=== PATIENT | male | born 1955 | race Caucasian/White ===

== ENCOUNTER → 2019-05-20 09:03 | Outpatient (CLI) | payer OTHER, SELFPAY ==
[2019-05-20 08:53] VITALS: BMI 29.5
--- NOTE | 2019-05-20 09:04 | RAD_ITS ---
HISTORY: increasing left hip pain, pre op EXAM: AP pelvis, and views of the left hip COMPARISON: None FINDINGS: # of images incl. paperwork: 6 *Arthritis is severe at the left hip. There is obliteration of the joint space. Subcortical cystic degenerative change, sclerosis, and osteophytes are present about the left hip. Surgical clips are present within the region of the left and right common femoral arteries from previous arteriotomy's. A stent is present within the region of the left common iliac artery. No dislocation. No acute fracture. RAD/HIP, UNI W/ Pelvis 2-3 Views IMPRESSION: Severe left hip osteoarthritis at 0558 Reported and signed by: Pratik Taylor MD Electronically Signed: Pratik Taylor MD at 5:57 EDT Tel , Service support ,
== END ==
PROVIDERS: Referring Provider Physician Assistant; Visit Provider Physician Assistant
DX: M16.12 Unilateral primary osteoarthritis, left hip (principal)
CPT/HCPCS: 73502

== ENCOUNTER 2019-06-04 08:45 | Inpatient (IN) | payer OTHER, SELFPAY ==
[2019-05-20 08:53] VITALS: BMI 29.5
[2019-05-28 10:18] VITALS: BP 149/76; PULSE 89; RESP 16; TEMP 36.9; O2SAT 97; BMI 30.4
[2019-06-04] VITALS (12 sets, daily range): BP systolic 122–149; BP diastolic 6–85; PULSE 60–97; RESP 16–18; TEMP 36.1–37.3; O2SAT 94–100; BMI 30.4
--- NOTE | 2019-06-04 07:16 | HP.PCM_ITS ---
History and Physical Date of Admission: 06/04/19 Intake Vital Signs 05/20/19 Body Mass Index (BMI) 29.5 Intake Visit Reasons: left hip Allergies Penicillins Allergy (Verified 04/17/19 08:35) rash HPI left hip: Details: Parts of this documentation were recorded by a scribe, this documentation accurately reflects the service provided and the decisions made by , RANJEET Lopez 05/20/19 0853. DAMION HIRSCH is a 63 year old M here today for left hip pain and to sign consent for surgery. Patient continues to have left groin pain, diffficulty with sit to stand movement as well as weakness and cramping in the left quad that has been associated with his femoral artery surgery. Patient is on plavix and has an appointment with Dr Langston next week to review his surgery clearance. He does have mild left side low back pain and sciatica, he is in understanding that his LUIS CARLOS will not resolve the back concerns. ROS Const Reports system reviewed and no additional complaints, except as docu, Reports weakness Eyes Reports system reviewed and no additional complaints, except as docu ENT Reports system reviewed and no additional complaints, except as docu Card Reports system reviewed and no additional complaints, except as docu, Denies chest pain, Denies leg pain with activity Resp Reports system reviewed and no additional complaints, except as docu GI Reports system reviewed and no additional complaints, except as docu Reports system reviewed and no additional complaints, except as docu Musc Reports system reviewed and no additional complaints, except as docu, Reports as per HPI, Reports tingling Skin/Breast Reports as per HPI, Denies skin swelling Neuro Yes as per HPI, Yes radiating pain, Yes tingling, Yes weakness Psych Reports system reviewed and no additional complaints, except as docu Endo Reports system reviewed and no additional complaints, except as docu Kelvin/Lymph Reports system reviewed and no additional complaints, except as docu Aller/Immun Reports system reviewed and no additional complaints, except as docu Ortho Exam Left Hip Skin/Wound: No Ecchymosis, No Erythema Hip: Absent eccymosis or erythema Special Tests: Yes C sign; no TTP Greater Troch Homans Sign: No HIP: No acute abnormalities on inspection. He does have healing scars from previous femoral bypass procedure. Patient does have pain with range of motion of the hip most notably internal and external rotation. Assessment & Plan Problems 1. Primary osteoarthritis of left hip M16.12 Plan Patient presents the office for left hip pain which has been occurring for quite a long time now. Patient had original x-rays and was told he needed a new hip. Radiographs were taken today as well along with marker placement. Radiographs show evidence of severe arthritis of the left hip. At this point patient has had continued progressing pain which has led to inability to complete some activities of daily living as well as extracurricular activities. Due to these factors patient would like to proceed with left hip total arthroplasty. Patient does have significant medical history for vascular disease and is meeting with his vascular surgeon on for clearance. Patient does currently take Plavix which we discussed he will need to stop 7 days prior to procedure. Patient had already discussed the procedure with at same time we did discuss this again and answered his questions. We did discuss postop and recovery including hospital stay. Patient does live by himself and has a few steps up to his front door. No steps in the house. Patient was given surgical antibacterial soap to be used the night before and morning of on the left lower extremity. Patient will be notified the day before surgery regarding his time of surgery. Patient will also be contacted by anesthesia for preanesthesia testing. All of patient's questions were answered at this time. He can always notify the office if he has any further questions or concerns. This note was generated with [employer] dictation software. It may contain incorrect words, spelling, and punctuation that were not noted in checking the note before signing. Orders Orders: HIP, UNI W/ Pelvis 2-3 Views Today M16.12 Coding Level of Care Code Off vis,est,level 2 Diagnoses Primary osteoarthritis of left hip M16.12 I have re-examined the patient. There are no clinical changes since date of exam
[2019-06-04 09:26] LABS: Bedside Glucose 84 mg/dL (70-110)
[2019-06-04] MEDS: Scopolamine 1mg/72hr Patch 1 PATCH TRANSDERM. (09:40)
[2019-06-04] MEDS: Gabapentin 600 MG Tablet PO (09:40)
[2019-06-04] MEDS: Acetaminophen 500 MG Tablet 1000 MG PO ×2 (09:41→21:14)
[2019-06-04] MEDS: Celecoxib 200 MG Capsule 400 MG PO (09:41)
[2019-06-04] MEDS: Magnesium Sulfate 4gm/100mL 4 GM/100 ML IV.SOLN. IV (09:45)
[2019-06-04] MEDS: Lactated Ringers 1,000 ML 100 ML IV (09:57)
[2019-06-04] MEDS: Cefazolin 2 GM in 0.9% Normal Saline 100 ML IV (13:07)
[2019-06-04] MEDS: dexAMETHasone 10 MG/ML Vial IV (13:28)
--- NOTE | 2019-06-04 14:59 | RAD_ITS ---
STUDY: X-RAY - PELVIS AND LEFT HIP REASON FOR EXAM: Male, 63 years old. Postop TECHNIQUE: 3 views of the pelvis and hip. COMPARISON: None. FINDINGS: There is mild degenerative change in the right hip joint. There is a new left hip arthroplasty with expected overlying skin gypsy and subcutaneous gas. Appears to be in anatomic position and alignment. RAD/Hip Min 2 Views (Portable) IMPRESSION: Status post new left hip arthroplasty. Postoperative change. Mild degenerative change right hip joint. Electronically Signed: Hanna Cortes MD at 16:50 EDT Tel , Service support ,
--- NOTE | 2019-06-04 15:03 | OP.PCM_ITS ---
Report of Operation Date of Procedure: 06/04/19 Description of Surgical Findings:: Preoperative diagnosis: DJD left hip Postoperative diagnosis: Same Procedure: Left total hip arthroplasty Implants: Catarino Accolade II stem size 4 127 degree neck angle -2.5 neck length 56 mm cup with 30mm cancellous screw 36 mm ceramic head Anesthesia: Spinal EBL: 300 cc Complications: None Condition: Stable to PACU Indication for procedure: This is a 63-year-old male who has had long-standing arthrosis of the hip who has failed conservative treatment and wished to undergo total hip arthroplasty. We did discuss operative versus nonoperative intervention including risks of bleeding, infection , nerve artery tissue damage , need for further surgery, fracture, leg length discrepancy dislocation blood clot and need for postoperative physical therapy and postoperative expectations. An informed consent was signed. Procedure: Patient was met in the preoperative holding area once again the operative extremity was identified by both patient and physician and was marked. Patient was met by anesthesia and a spinal was placed. patient was then positioned in the lateral decubitus position on a well-padded pegboard with an axillary roll. All bony prominences were checked and padded. The patient was prepped and draped in the usual sterile fashion. A timeout was called to ensure the proper patient procedure and extremity were being contemplated. Anatomic landmarks were palpated and marked for a standard posterior lateral approach. A 10 blade scalpel was used to make a posterior incision through the skin and subcutaneous tissue. In retractors were used and electrocautery was used to maintain meticulous hemostasis and dissect full-thickness flaps until the gluteal fascia was reached. The gluteal fascia was incised in line with the gluteal fibers. The bursal tissue was then freed from the underside and a Charnley retractor was placed. The fat pad was elevated off of the external rotators with electrocautery and the external rotators were dissected off of the greater trochanter including the piriformis and were tagged with #1 Ethibond for later repair. The joint capsule opened with posterior trapdoor technique. The hip was surgically dislocated. Hohmann was placed around the lesser trochanter. A neck cutting guide was used to bruno the neck with a Bovie and an oscillating saw was used complete the femoral neck cut. The femoral head was then removed and sized. We then turned our attention to the acetabulum. A Bovie was used to make a perforation in the anterior joint capsule and a pointed Hohmann was placed this was repeated in the 6 o'clock position a wide alla was placed there. With a long handled knife the labral and pulvinar tissue were removed. We then began sequential reaming until the appropriate size was achieved. We then fit the acetabular shell in place with good water reuse program manager to the acetabulum. We then proceeded to place a posterior superior screw by drilling first measuring and inserting the screw. We then inserted a trial liner. And turned our attention back to the femur at this point a femoral elevator was used. As well as a pointed wide Hohmann around the lesser trochanter and a Hohmann to help retract the gluteus medius. A box chisel was used to remove excess lateral neck followed by a canal finder and a lateralizing reamer. This was followed by sequential broaches. Attention was made of the version within the canal. Once the final broach was seated we then trialed reduced the hip it was determined that a 27 degree neck angle with a -2.5 neck length was the appropriate size. We then checked ability with shuck testing as well as flexion and internal rotation. then proceeded with hip extension and checked leg lengths at the knees and heels. At this point trials were removed. A posterior lipped liner was inserted to the cup. The femoral stem was inserted. We re-trialed and then proceeded to impact the femoral head onto the Rock taper. We then surgically reduce the hip check stability again and leg lengths and were satisfied. Betadi ne rinse was allowed to sit for 5 minutes while everyone changed their gloves. Thorough irrigation was performed. Followed by closure of the external rotators with #2 FiberWire followed by closure of gluteal fascia with #1 Ethibond. 0 Vicryl fat stitches and 2-0 Vicryl subcutaneous stitches and gypsy in the skin. Dressing was applied Mepilex Ag and an abduction pillow was placed. Patient tolerated the procedure well there was no intraoperative complications all counts were correct and the patient was brought back to the PACU in stable condition
[2019-06-04] MEDS: Lactated Ringers 1,000 ML 125 ML IV (16:43)
[2019-06-04] MEDS: Cefazolin 1 GM/50 ML BAG IV ×2 (17:25→22:59)
[2019-06-04] MEDS: Atorvastatin Calcium 40 MG Tablet PO (21:14)
[2019-06-04] MEDS: Senna/Docusate Sodium 1 Tablet 2 TABLET PO (21:15)
[2019-06-04] MEDS: oxyCODONE 5 MG Tablet PO (23:03)
[2019-06-05 03:25] VITALS: BP 109/63; PULSE 83; RESP 17; TEMP 36.6; O2SAT 96
[2019-06-05] MEDS: oxyCODONE 5 MG Tablet PO ×2 (04:52→12:37)
[2019-06-05 05:55] LABS: Hemoglobin 12.3 g/dL (13.0-16.5); Mean Corp Hgb Conc 34.2 g/dL (32-36); Mean Corpuscular Hgb 33.9 pg (27.0-32.0); Mean Corpuscular Volume 99.2 fL (80-94); Mean Platelet Vol. 9.2 fl (6.2-12.0); Platelet Count 211 K/mm3 (150-450); RBC Distribution Width CV 12.7 % (11.6-14.6); RBC Distribution Width SD 46.5 fl (35.1-43.9); Red Blood Count 3.63 M/mm3 (4.6-6.2); White Blood Count 11.1 K/mm3 (4.4-11.0)
[2019-06-05 06:17] LABS: Anion Gap 12 (5-15); BUN 18 mg/dL (7-18); BUN/Creat Ratio 15.7 RATIO (10-20); Calcium,Total 8.4 mg/dL (8.5-10.1); Chloride 100 mmol/L (98-107); Creatinine, Serum 1.15 mg/dL (0.70-1.30); EST Glomerular Filtration Rate 68 mL/min (>60); Est Glom Filt Rate - Afr Amer 82 mL/min (>60); Estimated Creatinine Clearance 64.89 ml/min; Glucose 241 mg/dL (74-106); Potassium 4.8 mmol/L (3.5-5.1); Sodium Level 135 mmol/L (136-145)
[2019-06-05] MEDS: Cefazolin 1 GM/50 ML BAG IV (06:43)
[2019-06-05] MEDS: Acetaminophen 500 MG Tablet 1000 MG PO ×2 (06:44→14:03)
[2019-06-05] MEDS: Senna/Docusate Sodium 1 Tablet 2 TABLET PO (07:47)
[2019-06-05] MEDS: APIXABAN 2.5 MG TABLET PO (07:50)
[2019-06-05 07:54] VITALS: BP 118/66; PULSE 98; RESP 16; TEMP 37.1; O2SAT 96
--- NOTE | 2019-06-05 10:25 | CASEMGMT ---
KYLE HENNESSY Face to Face with patient for initial transition planning/care coordination assessment. KYLE HENNESSY introduced self and role at [facility]. Patient lying in bed, alert and oriented. Patient willing to participate in assessment and is able to answer all questions appropriately. Care providers, pharmacy, and demographics verified. Patient wishes to discharge home and [facility]. Patient states he has no further needs or concerns at this time. CM to follow for discharge planning needs that may arise. PCP: Jeff Specialists:Petty Langston vascular surgeon Preferred [facility]acy: [facility] Insurance: MMO Prescription Benefit: yes Living Will/HPOA: none LNOK: son, daughter Living Arrangements: Patient lives with roommate in house with 3 steps to enter the home. Transportation: family/friends DME/HHC: Patient has walker that he has borrowed that is wide to fit in his bedroom. KYLE HENNESSY to assist with script for FWW. KYLE HENNESSY call [facility] outpatient therapy and scheduled appt for Monday06/10/19 1400. KYLE HENNESSY updated the patient. Patient voiced no further concerns at this time. Disposition Plan: Patient to discharge home with family suppor, outpatient therapy, and follow-up plans in place. Dilma WILD, RN, CM
[2019-06-05 11:30] VITALS: BP 122/69; PULSE 77; RESP 16; TEMP 36.6; O2SAT 95
--- NOTE | 2019-06-05 13:00 | CASEMGMT ---
KYLE HENNESSY received script for FWW. Patient requesting DME in-network with insurance. Patient is ready for discharge today. KYLE HENNESSY called [facility] and they are not able to deliver walker till tomorrow. KYLE HENNESSY updated patient and he will take script to [facility] to oyster picker walker. CM provided script to patient.
--- NOTE | 2019-06-05 13:50 | PCM.DC.ORTHO ---
Discharge Diet: No Restrictions Call your doctor if you observe: Fever of 101 or Higher, Shortness of breath, Chest pain Additional Instructions: Begin daily showering warm water antibacterial soap postop day #3 and then daily. Change dressing daily until no drainage for 2 consecutive days then may leave open to air. Follow hip precautions as reviewed by hospital physical therapist. Call with any concerns Allergies/Adverse Reactions: Allergies Penicillins Allergy (Verified 06/04/19 09:28) rash prednisone Allergy (Verified 06/04/19 09:28) Other PSYCHOTIC EPISODE Medications to take at Discharge atorvastatin 40 mg tablet 40 mg PO DAILY #30 tab 04/17/19 citalopram 40 mg tablet 40 mg PO DAILY #30 tab 04/17/19 Acetaminophen [Tylenol] 1,000 mg PO Q8 #100 tab 06/05/19 Apixaban [Eliquis] 2.5 mg PO BID #42 tab 06/05/19 Oxycodone [Oxyir] 5 - 10 mg PO Q4H PRN PRN 7 Days #60 tablet 06/05/19 The following prescriptions were given: Apixaban [Eliquis] 2.5 mg PO BID #42 tab Transmission Status: Pending to [facility] Oxycodone [Oxyir] 5 - 10 mg PO Q4H PRN PRN 7 Days #60 tablet PRN Reason: Mod-Severe Pain (4-1010) Transmission Status: Sent to [facility] Acetaminophen [Tylenol] 1,000 mg PO Q8 #100 tab Transmission Status: Pending to [facility] Primary Care Physician: Rhett Royal MD [Primary Care Provider] - Test Results: Test results from this visit will be discussed in further detail at your follow-up appointment, if applicable. [facility]: Monday Please Follow Up With: Leoncio Hung DO - 2 week
--- NOTE | 2019-06-05 13:51 | DS.PCM_ITS ---
Discharge Date and Diagnosis Date of Admission: 06/04/19 Date of Discharge: 06/05/19 Hospital Course and Treatment Summary of Care Provided: The patient is a 63 year old M underwent [left] total hip arthroplasty on date of admission without any intraoperative complications. Patient has failed can conservative treatment wished to undergo the elective procedure. Patient underwent the procedure without any intraoperative complications did receive pre-and postoperative antibiotics which were discontinued within 23 hours postoperatively. Patient did receive trans-examined acid and vital signs remained stable postoperatively as well as hemoglobin and hematocrit and did not require any blood transfusion. Seen by physical therapy did progress ambulation was started on both mechanical chemical DVT prophylaxis in the form of SCDs RUDDY hose and Eliquis 2.5 mg twice daily for which patient will continue for 3 weeks post hospital discharge at which point he will resume plavix and aspirin as given pre-op. To be set up with home health care at home physical therapy will follow-up in the office in 2 weeks for staple removal wound check and conversion to outpatient physical therapy. Subjective: Doing well pain controlled. No complaints passing gas. Denies fevers chills nausea vomiting shortness of breath chest pain. Well with physical therapy - Physical Exam General: Alert, Oriented x3, Cooperative, No apparent distress Extremities: - - Dressing clean dry and intact compartment soft neurovascular intact Vital Signs Temp Pulse Resp BP Pulse Ox 97.8 F 77 16 122/69 H 95 06/05/19 11:30 06/05/19 11:30 06/05/19 11:30 06/05/19 11:30 06/05/19 11:30 Oxygen Flow Rate (L/min) 6 Oxygen Delivery Method Room Air Weight: 206 lb 9.17 oz Body Mass Index (BMI) 30.4 Intake and Output for Last 24 Hours 06/03/19 06/04/19 06/05/19 23:59 23:59 23:59 Intake Total 3615.75 / 3615.75 1002 / 1002 Output Total 1675 / 1675 2425 / 2425 Balance 1940.75 / 1940.75 -1423 / -1423 Laboratory Tests Past 24 Hrs 06/05/19 06/05/19 05:35 05:35 WBC 11.1 H RBC 3.63 L Hgb 12.3 L Hct 36.0 L MCV 99.2 H MCH 33.9 H MCHC 34.2 RDW Std Deviation 46.5 H RDW Coeff of Love 12.7 Plt Count 211 MPV 9.2 Sodium 135 L Potassium 4.8 Chloride 100 Carbon Dioxide 23.0 Anion Gap 12 BUN 18 Creatinine 1.15 Estim Creat Clear Calc 64.89 Est GFR (MDRD) Af Amer 82 Est GFR (MDRD) Non-Af 68 BUN/Creatinine Ratio 15.7 Glucose 241 H Calcium 8.4 L Discharge Diet: No Restrictions Call your doctor if you observe: Fever of 101 or Higher, Shortness of breath, Chest pain Home Medications: Medications to take at Discharge atorvastatin 40 mg tablet 40 mg PO DAILY #30 tab 04/17/19 citalopram 40 mg tablet 40 mg PO DAILY #30 tab 04/17/19 Acetaminophen [Tylenol] 1,000 mg PO Q8 #100 tab 06/05/19 Apixaban [Eliquis] 2.5 mg PO BID #42 tab 06/05/19 Oxycodone [Oxyir] 5 - 10 mg PO Q4H PRN PRN 7 Days #60 tablet 06/05/19 Following Prescrptions Were Given to Patient: Apixaban [Eliquis] 2.5 mg PO BID #42 tab Transmission Status: Pending to [facility] Oxycodone [Oxyir] 5 - 10 mg PO Q4H PRN PRN 7 Days #60 tablet PRN Reason: Mod-Severe Pain (-06/20) Transmission Status: Sent to [facility] Acetaminophen [Tylenol] 1,000 mg PO Q8 #100 tab Transmission Status: Pending to [facility] Primary Care Physician: Rhett Royal MD [Primary Care Provider] - [facility]: Monday Please Follow Up With: Leoncio Hung DO - 2 week Additional Instructions: Begin daily showering warm water antibacterial soap postop day #3 and then daily. Change dressing daily until no drainage for 2 consecutive days then may leave open to air. Follow hip precautions as reviewed by hospital physical therapist. Call with any concerns Medical Necessity - Tobacco Use Smoking Status: Former smoker Meaningful Use Info Meaningful Use Diagnoses (Choose all that apply): None applicable
--- NOTE | 2019-06-05 15:15 | CASEMGMT ---
KYLE HENNESSY received call from patient stating that [facility] would not be able to provided walker to patient for 2 weeks. Patient states he has borrowed walker to use. KYLE HENNESSY called [place] at [facility], per [place], patient's insurance requires prior auth. KYLE HENNESSY faxed script and clinical information to [facility]. Michaelle will request FWW be expedited and have delivered to patient's house. KYLE HENNESSY called patient and updated and voiced understanding.
== END 2019-06-05 14:35 | disposition home health service (06) | DRG 470 ==
LOC: ACINP 08:46 → MS3 13:21
PROVIDERS: Admitting Provider Orthopaedic Surgery; Family Provider Family Medicine; PCP Family Medicine; Referring Provider Orthopaedic Surgery; Visit Provider Orthopaedic Surgery
PROC: 0SRB0JZ Replacement of Left Hip Joint with Synthetic Substitute, Open Approach (ICD-10-PCS; CPT 27130; principal; 2019-06-04 10:35)
DX: M16.12 Unilateral primary osteoarthritis, left hip (principal); M54.42 Lumbago with sciatica, left side; E78.00 Pure hypercholesterolemia, unspecified; F32.9 Major depressive disorder, single episode, unspecified; Z79.01 Long term (current) use of anticoagulants; Z79.82 Long term (current) use of aspirin; Z79.02 Long term (current) use of antithrombotics/antiplatelets; Z87.891 Personal history of nicotine dependence
CPT/HCPCS: 36415; 73502; 80048; 82962; 85027; 87081; 97110; 97162; 97166; 97530; C1776; J7120; J2405

== ENCOUNTER → 2019-06-17 08:31 | Outpatient (CLI) | payer OTHER, SELFPAY ==
[2019-06-04 17:17] VITALS: BMI 30.4
--- NOTE | 2019-06-17 08:32 | RAD_ITS ---
STUDY: X-RAY - PELVIS AND LEFT HIP REASON FOR EXAM: Male, 63 years old. Severe pain. No injury. TECHNIQUE: 3 views of the pelvis and hip. COMPARISON: 06/04/2019 radiographs. FINDINGS: Left total hip arthroplasty again demonstrated. The postoperative soft tissue air and skin gypsy seen on the previous study are no longer evident. Alignment is anatomic with no fracture or osseous destruction or other apparent complication. Sclerosis and cystic change of the underlying left acetabulum unchanged. Mild degenerative changes right hip. Calcific atherosclerosis, right femoral surgical clips. Stent in the region of the distal abdominal aorta and left common iliac artery. RAD/HIP, UNI W/ Pelvis 2-3 Views IMPRESSION: Left hip arthroplasty with no evidence of complication. Electronically Signed: Johnnie Garcia, at 9:00 EDT Tel , Service support ,
--- NOTE | 2019-06-17 08:57 | RAD_ITS ---
STUDY: X-RAY - LEFT KNEE REASON FOR EXAM: Male, 63 years old. Pain. TECHNIQUE: 4 view(s) of the knee. COMPARISON: None. FINDINGS: No visible fracture. No osseous destruction. Alignment anatomic. Mild degenerative changes. No acute soft tissue abnormality. Calcific atherosclerosis. RAD/Knee 4 or More Views IMPRESSION: No acute osseous abnormality. Electronically Signed: Johnnie Garcia, at 9:47 EDT Tel , Service support ,
== END ==
PROVIDERS: Family Provider Family Medicine; PCP Family Medicine; Referring Provider Orthopaedic Surgery; Visit Provider Orthopaedic Surgery
DX: M25.562 Pain in left knee (principal); M25.559 Pain in unspecified hip; Z96.642 Presence of left artificial hip joint
CPT/HCPCS: 73502; 73564

== ENCOUNTER → 2019-08-26 08:38 | Outpatient (CLI) | payer OTHER, SELFPAY ==
[2019-08-26 07:48] VITALS: BMI 30.4
--- NOTE | 2019-08-26 08:40 | RAD_ITS ---
STUDY: X-RAY - PELVIS AND LEFT HIP REASON FOR EXAM: Male, 63 years old. Pain. Postoperative. TECHNIQUE: 3 views of the pelvis and hip. COMPARISON: None. FINDINGS: There is a non-specific bowel gas pattern. Normal visualized soft tissue structures. There are multiple calcified phleboliths. There is narrowing with cortical sclerosis and osteophyte formation of the sacroiliac joint consistent with mild degenerative osteoarthritic changes. Normal bilateral superior and inferior pubic rami. Normal pubic symphysis. Normal bilateral ischial tuberosities. There is a total left-sided hip prosthesis in place. Alignment is normal. No lucency to suggest acute fracture. There are surgical clips along the medial aspect of the right hip. There is mild degenerative arthritis of the right hip. RAD/HIP, UNI W/ Pelvis 2-3 Views IMPRESSION: Degenerative disease as described above. Left-sided hip prosthesis in place with normal alignment. No acute fracture. Electronically Signed: Piedad Parr MD at 0:17 EST , Service support ,
== END ==
LOC: HPRAD 08:40
PROVIDERS: Family Provider Family Medicine; PCP Family Medicine; Visit Provider Orthopaedic Surgery
DX: Z47.89 Encounter for other orthopedic aftercare (principal)
CPT/HCPCS: 73502

== ENCOUNTER 2021-11-22 07:44 | Outpatient (CLI) | payer MEDICARE, SELFPAY ==
--- NOTE | 2021-11-22 07:46 | CT_ITS ---
EXAM: CT PELVIS WITHOUT INTRAVENOUS CONTRAST : 1955 CLINICAL INDICATION: R groin pain TECHNIQUE: Helically acquired images were obtained of the pelvis without intravenous contrast. This CT exam was performed using one or more of the following dose reduction techniques: automated exposure control, adjustment of the mA and/or kV according to patient size, and/or use of iterative reconstruction technique. This report was created using [employer] report generation technology. COMPARISON: Right hip radiographs October 25, 2021 FINDINGS: BOWEL: Colon diverticulosis noted without evidence of acute diverticulitis. No bowel distention. APPENDIX: No evidence of acute appendicitis. INTRAPERITONEAL SPACE: Unremarkable. No ascites or other fluid collection. No free air. BLADDER: Unremarkable. REPRODUCTIVE: Unremarkable as visualized. No mass. BONES/JOINTS: Left hip prosthesis in place. No suspicious lytic or blastic abnormality. SOFT TISSUES: Unremarkable. No pelvic wall hernia. VASCULATURE: Femorofemoral [place] graft in place. Iliac arteries are densely calcified. Left common iliac artery stent is noted. LYMPH NODES: Unremarkable. No enlarged lymph nodes. CT/Pelvis without IV Contrast IMPRESSION: No acute abnormality. Individualized dose optimization techniques were used for this CT. at 0907 Reported and signed by: John Wise MD Electronically Signed: John Wise MD at 9:06 EDT Reading Location ID and State: [address] [place] [address] Tel , Service support ,
== END 2021-11-22 23:59 | disposition home or self-care (01) ==
PROVIDERS: PCP Family Medicine; Referring Provider Surgery; Visit Provider Surgery
DX: R10.31 Right lower quadrant pain (principal)
CPT/HCPCS: 72192

== ENCOUNTER → 2022-01-13 | Outpatient (CLI) | payer MEDICARE, SELFPAY ==
--- NOTE | 2022-01-13 07:43 | CT_ITS ---
STUDY: CT SCAN HIP RIGHT.[facility] protocol. REASON FOR EXAM: Male, 66 years old. Templating for Right LUIS CARLOS RADIATION DOSAGE (If Supplied By Facility): CTDIvol = ( 12.13 ) mGy, DLP = ( 826.52 ) mGycm. Individualized dose optimization techniques were used for this CT.? TECHNIQUE: Multiple axial tomographic images were obtained without intravenous contrast administration. Coronal and sagittal reconstruction was obtained as well. COMPARISON: None. FINDINGS: There is a marked degree of joint space narrowing of the right hip joint with degenerative spur formation along the inferior medial aspect of the right acetabulum. No bony destruction is seen. The patient is status post left total hip replacement. CT/Extremity Lower without Contra IMPRESSION: Marked degree of joint space narrowing of the right hip joint with a degenerative spur formation along the inferior medial aspect of the right acetabulum. The patient is status post left hip replacement. Electronically Signed: Shorty Anguiano MD at 8:53 EDT ,
== END | disposition home or self-care (01) ==
LOC: CT 07:41
PROVIDERS: PCP Family Medicine; Referring Provider Orthopaedic Surgery; Visit Provider Orthopaedic Surgery
DX: M16.11 Unilateral primary osteoarthritis, right hip (principal)
CPT/HCPCS: 73700

== ENCOUNTER 2022-02-08 05:18 | Inpatient (IN) | payer MEDICARE, SELFPAY ==
--- NOTE | 2022-01-28 08:02 | EKG12_ITS ---
Test Reason : PRE OP Blood Pressure : / mmHG Vent. Rate : 100 BPM Atrial Rate : 100 BPM P-R Int : 166 ms QRS Dur : 166 ms QT Int : 360 ms P-R-T Axes : 072 065 032 degrees QTc Int : 464 ms Normal sinus rhythm Non-specific intra-ventricular conduction block Abnormal ECG Confirmed by DANIEL BARAJAS, DOTTIE ([id number]), scientific editor MAGUE BRANCH ([id number]) on 01/31/2022 9:58:13 AM Referred By: TEJAL Confirmed By:MARYANN SANCHEZ MD
[2022-01-28 09:51] LABS: Absolute Lymphocyte Count 2.45 X10^3/uL (0.83-4.51); Absolute Neutrophil Count 4.1 X10^3/uL (2.0-7.7); Basophil# 0.08 X10^3/uL; Eosinophil# 0.28 X10^3/uL; Eosinophils% 3.6 % (0-5); Hematocrit 42.9 % (40-54); Hemoglobin 14.6 g/dL (13.0-16.5); Lymphocyte # 2.45 X10^3/ul (0.83-4.51); Lymphocyte % 31.1 % (19-41); Mean Corpuscular Volume 102.9 fL (80-94); Mean Platelet Vol. 9.1 fl (6.2-12.0); Monocyte# 0.96 X10^3/uL; Monocyte% 12.2 % (0-10); NRBC Flagged by Analyzer 0 % (0-5); Neutrophil # 4.07 X10^3/uL (2.7-7.7); Neutrophil % 51.7 % (47-70); Platelet Count 293 K/mm3 (150-450); RBC Distribution Width CV 13.3 % (11.6-14.6); RBC Distribution Width SD 51.3 fl (35.1-43.9); Red Blood Count 4.17 M/mm3 (4.6-6.2); White Blood Count 7.9 K/mm3 (4.4-11.0)
[2022-01-28 09:56] LABS: Prothrombin Time (Protime)PT. 13.4 SECONDS (11.7-14.9)
[2022-01-28 10:15] LABS: AST(SGOT) 48 U/L (15-37); Alanine Aminotransfer ALT/SGPT 40 U/L (16-61); Albumin, Serum 3.8 g/dL (3.2-5.0); Alkaline Phosphatase 91 U/L (45-117); Anion Gap 10 (5-15); BUN 11 mg/dL (7-18); BUN/Creat Ratio 12.9 RATIO (10-20); Bilirubin, Direct 0.12 mg/dL (0.00-0.30); Calcium,Total 9.2 mg/dL (8.5-10.1); Chloride 102 mmol/L (98-107); Creatinine, Serum 0.86 mg/dL (0.70-1.30); EST Glomerular Filtration Rate 95 mL/min (>60); Est Glom Filt Rate - Afr Amer 115 mL/min (>60); Globulin 4.3 g/dL (2.2-4.2); Glucose 109 mg/dL (74-106); Potassium 3.9 mmol/L (3.5-5.1); Protein, Total 8.1 g/dL (6.4-8.2); Sodium Level 136 mmol/L (136-145)
[2022-01-29 13:12] LABS: Fructosamine 231 umol/L (0-285)
[2022-02-08] VITALS (11 sets, daily range): BP systolic 111–169; BP diastolic 61–80; PULSE 70–104; RESP 16–18; TEMP 36.1–37.1; O2SAT 95–100; BMI 31.2
[2022-02-08 06:01] LABS: Bedside Glucose 131 mg/dL (74-106)
[2022-02-08] MEDS: Lactated Ringers 1,000 ML 999 ML IV (06:20)
[2022-02-08] MEDS: Magnesium 2 GM IV (06:21)
[2022-02-08] MEDS: Lactated Ringers 1,000 ML 15 ML IV (06:26)
[2022-02-08] MEDS: Scopolamine 1mg/72hr Patch 1 PATCH TD (06:27)
[2022-02-08] MEDS: Acetaminophen 500 MG Tablet 1000 MG PO ×3 (06:27→22:32)
[2022-02-08] MEDS: Gabapentin 600 MG Tablet PO (06:27)
--- NOTE | 2022-02-08 07:17 | PCM.HP.BLA ---
History and Physical Date of Admission: 02/08/22 [facility] [id number] [phone] OFFICE VISITDate of Service: 01/03/22 MR#:[id number]:[id number]: DAMION HIRSCH [facility] #:[id number]:1955 Provider:Dr. Leoncio Hung, DOAge/Sex: 66/M [facility]Signed Intake Intake Visit Reasons: Follow up after completing PT Allergies Penicillins Allergy (Verified 11/29/21 08:06) rash prednisone Allergy (Verified 11/29/21 08:06) Other Medications atorvastatin 40 mg tablet 40 mg PO DAILY #30 tab 04/17/19 [History Confirmed 01/03/22] citalopram 40 mg tablet 40 mg PO DAILY #30 tab 04/17/19 [History Confirmed 01/03/22] rivaroxaban 2.5 mg tablet 2.5 mg PO BID 11/04/20 [History Confirmed 01/03/22] aspirin 81 mg tablet,delayed release 81 mg PO DAILY 10/25/21 [History Confirmed 01/03/22] fenofibrate nanocrystallized 145 mg tablet 145 mg PO DAILY 11/16/21 [History Confirmed 01/03/22] latanoprost 0.005 % eye drops 1 drp OPHTHALMIC (EYE) DAILY 11/16/21 [History Confirmed 01/03/22] timolol maleate 0.5 % eye drops 1 drp OPHTHALMIC (EYE) ml 11/29/21 [History Confirmed 01/03/22] REPLACED BY [facility] Medical History (Updated 11/16/21 @ 08:41 by Stefania Monday) artery bypass over abdomen Blood clots in brain Peripheral arterial disease Surgical History History of total left hip arthroplasty Hx of repair of left rotator cuff Family History (Updated 11/16/21 @ 08:42 by Stefania Monday) Father Asthma Social History (Updated 11/16/21 @ 08:42 by Stefania Monday) Smoking Status: Former smoker alcohol intake: current substance use type: does not use HPI Follow up after completing PT Details: Parts of this documentation were recorded by a scribe, this documentation accurately reflects the service provided and the decisions made by me, Dr. Leoncio Hung, DO 01/03/22 0752. DAMION HIRSCH is a 66 year old M here today for F/U on right groin and hip pain. He states that 1st visit he felt better getting into car. He states that as therapy progressed his pain increased to 5-6/10 will walking and 6-7/10 pain with sitting in car. He does a journal of his progression of pain after PT each visit. He states that he has right groin pain. He also has inner right thigh pain. He did have a lump over the groin and he did see general surgery for this and it was determined that there was no hernia noted. Denies any surgery or injections of the right hip. PT discharged him d/t increased pain. He has had a femoral bypass surgery of the BL groins. He states this was an open procedure. He states that he last saw vascular surgeon in 10/2021. Ortho Exam General General: Yes no acute distress Neurologic: Yes alert and Yes oriented x3 Psychologic: Yes reasonable and appropriate Right Hip Skin: No Ecchymosis, No soft tissue swelling and No Erythema Special Tests: Yes TTP Greater Troch, Yes FADIR and Yes FADER Homans Sign: No HIP: previous healed incision of right groin without concern 1/4 dorsalis pedis 2/4 posterior tibial 0 internal rotation with pain limited external rotation with pain. Supplemental Info 10/25/2021 x-ray right hip: Compared to previous x-rays he has had progression of his joint space narrowing and hip arthrosis, vascular clips Coding Level of Care Code Off vis,est,level 3 Diagnoses Degenerative joint disease of right hip M16.11 Assessment and Plan Assessment and Plan (1) Degenerative joint disease of right hip: Status: Acute Plan - Dr. Leoncio Hung, DO: Obtained X-rays of patient's right hip. Personally reviewed x-rays. There is no obvious fracture, dislocation, or lucency noted. Patient educated that he does have OA of the right hip. Since he has tried and failed conservative care including PT then his next treatment option is a right LUIS CARLOS. Risks, benefits and alternatives of surgery reviewed including but not limited to bleeding, infection, nerve, artery and/or tissue damage, fracture, VTE, leg length discrepancy, dislocation, need for hip precautions for 3 months, continued pain and expected post-operative course, in addition injury to vascular graft blood loss and . He can still have tenderness over the right lateral side of the hip. He will need a CT scan of the hip prior to surgery. It can be about 6 weeks on average post op before he is comfortable driving. We will need clearance from the vascular surgeon to stop the Xarelto 5 days prior to surgery and ok to have hip replacement on the right. Will plan for inpatient surgery. Patient was on Plavix 2018 with his last surgery and this was stopped 5 days prior to his surgery in 2019. He can take Tylenol 1000mg every 6 hours PRN for pain. Unable to take NSAIDs d/t use of Xarelto. Follow up 2 weeks post op or sooner if pain, swelling, numbness or associated symptoms, or concerns develop. All questions answered. Patient in agreement of plan. 01/03/22 1111<Electronically signed by Leoncio Hung DO>Date Leoncio Hung DO I have re-examined the patient. There are no clinical changes since date of exam
[2022-02-08] MEDS: Cefazolin 2 GM in 0.9% Normal Saline 100 ML IV ×3 (07:29→18:46)
--- NOTE | 2022-02-08 07:30 | HIP_PTH ---
PATIENT: DAMION HIRSCH LOC: MS3 U#:[id number] AGE/SX: 66/M ROOM: [facility] [place]/08/[address]: Dr. Leoncio Hung DO : 1955 BED: 1 DIS: 02/09/2022 SPEC #: [id number] RECD: 02/08/22 12:16 STATUS: TRENT OREN #: [id number] LARRY: 02/08/22 07:[address]: Leoncio Hung DEPT: SURGICAL PATHOLOGY RECD BY: Abdi Borden ENTERED: 02/08/22 12:23 SP TYPE: TOTAL HIP OTHR DR: Dr. Rhett Royal MD Tissues: Hip, NOS Procedures: Decalcification bone/plaque Surgery Specimen Level IV HEADER OPERATION: Total hip replacement robotic arm assist PRE-OP DIAGNOSIS: Degenerative joint disease of right hip TISSUE SUBMITTED: Bone and soft tissue right hip MICROSCOPIC DIAGNOSIS Bone and tissue of right hip, total hip resection: Severe degenerative joint disease. AM:florentino 02/11/2022 MICROSCOPIC DESCRIPTION Slides are reviewed. GROSS DESCRIPTION Received is one container labeled with the patient's name and designated bone and soft tissue hip, right. The specimen consists of a kim femoral head measuring 6 x 5 x 5 cm. The articular surface displays prominent osteophyte formation, eburnation and bone erosion. Also present in the specimen container are multiple irregular fragments of bone reamings and pink-yellow soft tissue measuring in aggregate 10 x 8 x 1 cm. Electrophysiology Tech sections are submitted in two cassettes as follows: 1 - soft tissue, 2 - bone after decalcification. / AM:florentino 02/08/2022 TC:5 CPT: 81544, 07424
[2022-02-08] MEDS: dexAMETHasone 10 MG/ML Vial IV (08:11)
[2022-02-08] MEDS: Lactated Ringers 1,000 ML 125 ML IV ×2 (09:00→11:57)
--- NOTE | 2022-02-08 10:13 | OP.PCM_ITS ---
Report of Operation Date of Procedure: 02/08/22 Description of Surgical Findings:: Preoperative diagnosis: Right hip DJD Postoperative diagnosis: Same Procedure: CT-guided Makoplasty assisted right total hip arthroplasty Implants: [place] Accolade II stem size 4, 127 degree neck angle +2.5 neck length 54 mm Trident II acetabular shell with 30 mm cancellous screw 36 mm ceramic head Anesthesia: Spinal EBL: 200 cc Complications: None Condition: Stable to PACU Indication for procedure: This is a 66-year-old male who has had long-standing arthrosis of the hip who has failed conservative treatment and wished to undergo total hip arthroplasty. Previously did his left total hip arthroplasty and he did well. we did discuss operative versus nonoperative intervention including risks of bleeding, infection , nerve artery tissue damage, need for further surgery, fracture, leg length discrepancy dislocation blood clot and need for postoperative physical therapy and postoperative expectations. An informed consent was signed. Procedure: Patient was met in the preoperative holding area once again the op erative extremity was identified by both patient and physician and was marked. Patient was met by anesthesia . Anesthesia was started. patient was then positioned in the lateral decubitus position on a well-padded pegboard with an axillary roll. All bony prominences were checked and padded. The patient was prepped and draped in the usual sterile fashion. A timeout was called to ensure the proper patient procedure and extremity were being contemplated. Anatomic landmarks were palpated and marked for a standard posterior lateral approach. Prior to this the ASIS was palpated and 3 fingerbreadths proximal to this 3 pins were placed at a 45 degree angle into the iliac crest with good purchase, stab incisions were made with a 15 blade into the skin prior to placement. The Makoplasty array was then secured. A 10 blade scalpel was used to make a posterior incision through the skin and subcutaneous tissue. retractors were used and electrocautery was used to maintain meticulous hemostasis and dissect full-thickness flaps until the gluteal fascia was reached. The gluteal fascia was incised in line with the gluteal fibers. The bursal tissue was then freed from the underside and a Charnley retractor was placed. The femoral trochanteric checkpoint was placed and leg length was assessed using the trochanteric checkpoint and an EKG lead that was placed on the knee prior to prepping the leg .the fat pad was then elevated off of the external rotators with electrocautery and the external rotators were dissected off of the greater trochanter including the piriformis and were tagged with #1 Ethibond for later repair. The joint capsule opened with posterior trapdoor technique. The hip was surgically dislocated. The measurement on the preoperative CT from the top of the lesser trochanter to the femoral neck cut was marked Hohmann was placed around the lesser trochanter. A neck cutting guide was used to bruno the neck with a Bovie and an oscillating saw was used complete the femoral neck cut. The femoral head was then removed and sized. We then turned our attention to the acetabulum. A Bovie was used to make a perforation in the anterior joint capsule and a Greer retractor was placed this was repeated in the 6 o'clock position and a wide alla was placed there. With a long handled knife the labral and pulvinar tissue were removed. We then registered the acetabulum with the pointing array and confirmed our landmarks. Once the socket was thoroughly prepared and labral tissue and pulvinar was removed we single reamed with the robotic arm. We then used the robotic arm to position the acetabular implant and impacted it into place under robotic guidance. We then proceeded to place a posterior superior screw by drilling first measuring and inserting the screw. We then inserted a trial liner. And turned our attention back to the femur at this point a femoral elevator was used. As well as a pointed wide Hohmann around the lesser trochanter and a Hohmann to help retract the gluteus medius. A box chisel was used to remove excess lateral neck followed by a canal finder and a lateralizing reamer. This was followed by sequential broaches. Attention was made of the version within the canal based on preoperative templating. Once the final broach was seated we then trialed reduced the hip it was determined that a 127 degree neck angle with a +2.5 neck length was the appropriate size. We then checked stability with shuck testing as well as flexion and internal rotation. then proceeded with hip extension and checked leg lengths at the knees and heels as well as with the trochanteric checkpoint and knee EKG lead. At this point trials were removed. A liner was inserted to the cup. The femoral stem was inserted. We re-trialed and then proceeded to impact the femoral head onto the Rock camacho. We then surgically reduce the hip check stability again and leg lengths and were satisfied. Betadine rinse was allowed to sit for 5 minutes while everyone changed their gloves. Thorough irrigation was performed. Followed by closure of the external rotators with #2 FiberWire followed by closure of gluteal fascia with #1 Ethibond. 0 Vicryl fat stitches and 2-0 Vicryl subcutaneous stitches and gypsy in the skin. A pulls were placed in the pin sites over the iliac crest with Xeroform 4 x 4 and OpSite. dressing was applied to incisional area with Mepilex Ag and an abduction pillow was placed. Patient tolerated the procedure well there was no intraoperative complications all counts were correct and the patient was brought back to the PACU in stable condition
--- NOTE | 2022-02-08 10:40 | RAD_ITS ---
STUDY: X-RAY - PELVIS AND RIGHT HIP REASON FOR EXAM: Male, 66 years old. Post Op -- AP both hips on single aleksandar/lateral of op hip PACU TECHNIQUE: 2 views of the pelvis and hip. COMPARISON: None. FINDINGS: The patient is status post right total hip replacement. There is good alignment. Postoperative soft tissue changes. RAD/Hip Min 2 Views (Portable) IMPRESSION: Status post right total hip replacement. There is good alignment. Electronically Signed: Shorty Anguiano MD at 11:10 EDT ,
[2022-02-08 11:11] LABS: Bedside Glucose 125 mg/dL (74-106)
[2022-02-08] MEDS: Ketorolac 15 MG/ML Vial IV (12:03)
[2022-02-08] MEDS: 0.9% Saline Lock 10 ML Syringe IV ×2 (12:04→22:35)
[2022-02-08] MEDS: oxyCODONE 5 MG Tablet PO (22:31)
[2022-02-08] MEDS: Senna/Docusate Sodium 1 Tablet 2 TABLET PO (22:32)
[2022-02-08] MEDS: Atorvastatin Calcium 40 MG Tablet PO (22:32)
[2022-02-08] MEDS: Latanoprost 0.005% 1 Bottle 1 DRP OPHTHALMIC (22:33)
[2022-02-09] MEDS: 0.9% Saline Lock 10 ML Syringe IV (03:38)
[2022-02-09] MEDS: Ketorolac 15 MG/ML Vial IV (03:38)
[2022-02-09] MEDS: Cefazolin 2 GM in 0.9% Normal Saline 100 ML IV (03:39)
[2022-02-09] MEDS: oxyCODONE 5 MG Tablet PO ×3 (03:47→13:54)
[2022-02-09 03:59] VITALS: BP 149/81; PULSE 73; RESP 16; TEMP 36.4; O2SAT 98
[2022-02-09 05:49] LABS: Hematocrit 32.5 % (40-54); Hemoglobin 11.1 g/dL (13.0-16.5); Mean Corp Hgb Conc 34.2 g/dL (32-36); Mean Corpuscular Hgb 34.7 pg (27.0-32.0); Mean Corpuscular Volume 101.6 fL (80-94); Mean Platelet Vol. 9.5 fl (6.2-12.0); Platelet Count 250 K/mm3 (150-450); RBC Distribution Width CV 12.5 % (11.6-14.6); RBC Distribution Width SD 46.8 fl (35.1-43.9); White Blood Count 11.8 K/mm3 (4.4-11.0)
[2022-02-09 06:09] LABS: Anion Gap 8 (5-15); BUN 11 mg/dL (7-18); BUN/Creat Ratio 11.2 RATIO (10-20); Calcium,Total 8.1 mg/dL (8.5-10.1); Chloride 102 mmol/L (98-107); Creatinine, Serum 0.98 mg/dL (0.70-1.30); EST Glomerular Filtration Rate 81 mL/min (>60); Est Glom Filt Rate - Afr Amer 98 mL/min (>60); Estimated Creatinine Clearance 73.14 ml/min; Glucose 155 mg/dL (74-106); Potassium 4.2 mmol/L (3.5-5.1); Sodium Level 134 mmol/L (136-145)
[2022-02-09] MEDS: Rivaroxaban 10 MG Tablet PO (06:22)
[2022-02-09] MEDS: Acetaminophen 500 MG Tablet 1000 MG PO ×2 (06:22→13:55)
[2022-02-09] MEDS: Timolol 0.5% 5ML OPTH.BTL 1 DRP OPHTHALMIC (08:45)
[2022-02-09] MEDS: Senna/Docusate Sodium 1 Tablet 2 TABLET PO (08:45)
[2022-02-09] MEDS: Fenofibrate 145 MG Tablet PO (08:45)
[2022-02-09 09:01] VITALS: BP 156/78; PULSE 88; RESP 18; TEMP 36.6; O2SAT 100
--- NOTE | 2022-02-09 10:10 | CASEMGMT ---
KYLE HENNESSY Face to Face with patient for initial transition planning/care coordination assessment. KYLE HENNESSY introduced self and role at [facility]. Patient sitting in chair, alert and oriented. Patient willing to participate in assessment and is able to answer all questions appropriately. Care providers, pharmacy, and demographics verified. Patient wishes to discharge home and is setup with outpatient therapy at [facility]. Patient states he has no further needs or concerns at this time. CM to follow for discharge planning needs that may arise. PCP: Lele Specialists: thomas Hung; Nela [facility] Preferred Pharmacy: [facility] [place] Insurance: [employer] [facility] Prescription Benefit: yes Living Will/HPOA: none LNOK: son Living Arrangements: Patient lives with son in a 2 story home with bed and bath on first floor. 3 steps and railing to enter the home. Patient states he was independent at home. Transportation: son, friend DME/HHC: Patient states he has raised toilet, grab bars, and walker at home. Patient is scheduled for outpatient therapy starting Monday at [facility] Disposition Plan: Patient to discharge home with outpatient therapy, family support, and follow-up plans in place. Dilma WILD, RN, CM
[2022-02-09 11:56] LABS: Bedside Glucose 127 mg/dL (74-106)
--- NOTE | 2022-02-09 13:12 | DS.PCM_ITS ---
Providers Date of Admission: 02/08/22 Primary Care Physician: Dr. Rhett Royal MD Reason For Visit: RT TOTAL HIP ROBOTIC Diagnosis Discharge Diagnosis (1) Degenerative joint disease of right hip: Status: Acute Code(s): M16.11 - Unilateral primary osteoarthritis, right hip (2) S/P total right hip arthroplasty: Status: Acute Code(s): Z96.641 - Presence of right artificial hip joint (3) Other acute postprocedural pain: Status: Acute Code(s): G89.18 - Other acute postprocedural pain Medications at Discharge Home Medications atorvastatin 40 mg tablet 40 mg PO DAILY #30 tab 04/17/19 citalopram 40 mg tablet 40 mg PO DAILY #30 tab 04/17/19 rivaroxaban 2.5 mg tablet 2.5 mg PO BID 11/04/20 aspirin 81 mg tablet,delayed release 81 mg PO DAILY 10/25/21 fenofibrate nanocrystallized 145 mg tablet 145 mg PO DAILY 11/16/21 latanoprost 0.005 % eye drops 1 drp OPHTHALMIC (EYE) DAILY 11/16/21 timolol maleate 0.5 % eye drops 1 drp OPHTHALMIC (EYE) DAILY ml 11/29/21 oxycodone 5 mg tablet See Rx Instructions PO Q4H PRN 5 Days #60 tab 02/09/22 rivaroxaban 10 mg tablet 10 mg PO DAILY 35 Days #35 tab 02/09/22 acetaminophen 1,000 mg PO .COMPLEX PRN #90 tab 02/11/22 Hospital Course Operations total hip replacement Summary of Care Provided Hospital Course: Patient with long-standing history of severe right hip DJD who has failed conservative treatment. Patient underwent right total hip arthroplasty on day of admission. Patient did receive pre-and postoperative antibiotics which were discontinued within 23 hours postoperatively. Patient did receive spinal anesthesia and postoperatively his pain was controlled with both IV and p.o. pain medication. Patient did receive 2 g of tranexamic acid. His hemoglobin and hematocrit were monitored postoperatively as well as his vital signs and he did not require any blood transfusion. PAtient was ambulating the evening of surgery and was seen by physical therapy as well. He was able to perform stairs post-operative day one. He had some pains the first night post-op that was better controlled the next day. Dressing will be changed daily beginning postop day #3 before shower will be removed and replaced after. Pt was previously take Xeralto prior to surgery and therefore was prescribed 10 mg of Xeralto once daily postop day #1 for which will continue for 35 days post hospital discharge. Patient was originally approved to stay at the same time he states that he was feeling extremely well and is asking to go home today as he has things set up with his family in regards to his care. We will start outpatient physical as scheduled. will follow-up in the office in 2 weeks. Patient experienced not intrahospital complications. Physical Exam Const alert and oriented x3 General Appearance: cooperative, comfortable and well developed Orientation / Consciousness: awake and oriented to person Extremity Right Lower Extremity: hip joint inspection (occlusive dressing still in place that is clean and dry without any saturation or abnormal appearence. Area around dressing shows evident ecchymosis noted primarily inferiorly and posteriorly. No surrounding erythema. ), palpation (Skin is soft around the incision site without inudration. He has no tenderness on palpation directly over the dressing. No warmth. No pains in the thigh.), neurovascular exam (Patient has intact sensation to light touch with exception of the toes where he has chronic peripheral neuropathy. He has intact motor function to include normal strength with ankle dorsiflexion and plantar flexion along with inversion and eversion. Intact motor function of the knee and hip. ), other (He has soft compartments throughout the lower extyremity and a negative homans. ) and special tests Skin no wounds and no jaundice Weight / BMI Weight Weight: 211 lb 6.4 oz Body Mass Index (BMI) 31.2 ABG / Lab / Microbiology Data Result Diagrams: 02/09/22 05:07 02/09/22 05:07 Laboratory: Laboratory Results - last 24 hr 02/09/22 05:07: WBC 11.8 H, RBC 3.20 L, Hgb 11.1 L, Hct 32.5 L, MCV 101.6 H, MCH 34.7 H, MCHC 34.2, RDW Std Deviation 46.8 H, RDW Coeff of Love 12.5, Plt Count 250, MPV 9.5 02/09/22 05:07: Sodium 134 L, Potassium 4.2, Chloride 102, Carbon Dioxide 24.0, Anion Gap 8, BUN 11, Creatinine 0.98, Estim Creat Clear Calc 73.14, Est GFR (MDRD) Af Amer 98, Est GFR (MDRD) Non-Af 81, BUN/Creatinine Ratio 11.2, Glucose 155 H, Calcium 8.1 L 02/09/22 11:38: POC Glucose 127 H Microbiology: Microbiology 01/28/22 08:18 Swab (Method) Nasal Screen MRSA/MSSA - Final D/C Instructions Discharge Diet: No restrictions, 2000 Calorie Control Diet, Carb Control Diet and - (Low sugar/carbohydrate diet decreases infection risks) Discharge Activity: May Not Drive, May Shower (beginning 72 horus post- operatively) and Use Walker Ice area for (Minutes): 20 (every 1-2 hours) Weight Bearing Status: Weight bearing as tolerated Keep extremity elevated above heart level: Operative Extremity Call your doctor if your incision/area has: Increased Pain/ Swelling, Increased Redness and Foul Smelling Discharge Call your doctor if you observe: Fever of 101 or Higher, Shortness of breath, Chest pain and Calf discomfort Suture Line Care: Avoid Pulling/Pushing Remove Dressing in: 3 days Cleanse incision/area with: Soap & Water (daily) and Keep Dressing Clean & Dry (once cleaned) Additional Dressing/Incision Instructions: Leave the dressing on for 72 hours postoperatively then may remove prior to first shower and change dressing daily therafter. May leave open to air after having 2 consecutive days where there is NO drainage. Additional Instructions: Follow hip precautions that were reviewed in hospital. Wear compression stockings, may remove at night. Start physical therapy as directed in hospital. Follow prescriptions instructions do not take any other pain medication or differ dosing without consulting your physician. Do not take oral NSAIDs until blood thinner has been completed , then may begin the day after completion if needed . Call Dr. Hung's office with any concerns. Continue with compression stalkings. Take anti-coagulant as prescribed. Please Follow Up With: Paul Falcon PA When: 2 weeks Meaningful Use Info Meaningful Use Diagnoses (Choose all that apply): None applicable Discharge Plan Admission Admit Date/Time: 02/08/22 05:18 Primary Reason for Your Visit: Right total hip arthroplasty Attending Provider: Leoncio Hung Primary Care Provider: Rhett Royal Discharge Orders/Prescriptions Prescriptions: Continued citalopram 40 mg tablet 40 mg PO DAILY Qty: 30 RF: 0 atorvastatin 40 mg tablet 40 mg PO DAILY Qty: 30 RF: 0 aspirin 81 mg tablet,delayed release (DR/EC) 81 mg PO DAILY RF: 0 latanoprost 0.005 % drops 1 drp ophthalmic (eye) DAILY RF: 0 fenofibrate nanocrystallized 145 mg tablet 145 mg PO DAILY RF: 0 timolol maleate 0.5 % drops 1 drp ophthalmic (eye) DAILY RF: 0 acetaminophen 500 mg tablet 1,000 mg PO .COMPLEX PRN (Reason: pain) Qty: 90 RF: 0 Xarelto 10 mg tablet 10 mg PO DAILY 35 Days Qty: 35 RF: 0 oxycodone 5 mg tablet See Rx Instructions PO Q4H PRN (Reason: pain) 5 Days Qty: 60 RF: 0 Held Xarelto 2.5 mg tablet 2.5 mg PO BID RF: 0 Hold Instructions: Resume on 03/17/22. To be held while taking hte higher 10mg dose Referrals / Follow Up: Rhett Royal MD [Primary Care Provider] - Disposition Disposition (needs filled in before D/C Order can be placed): Home, Self Care
[2022-02-09 14:01] VITALS: BP 158/69; PULSE 87; RESP 18; TEMP 36.6; O2SAT 98
== END 2022-02-09 16:08 | disposition home or self-care (01) | DRG 470 ==
LOC: ACINP 05:44 → MS3 10:11
PROVIDERS: Anesthesiology; Admitting Provider Orthopaedic Surgery; PCP Family Medicine; Referring Provider Orthopaedic Surgery; Visit Provider Orthopaedic Surgery
PROC: 8E0Y0CZ Robotic Assisted Procedure of Lower Extremity, Open Approach (ICD-10-PCS; CPT 27130; principal; 2022-02-08 07:00)
DX: M16.11 Unilateral primary osteoarthritis, right hip (principal); Z20.822 Contact with and (suspected) exposure to COVID-19; Z79.01 Long term (current) use of anticoagulants; Z79.82 Long term (current) use of aspirin; Z96.641 Presence of right artificial hip joint; Z95.820 Peripheral vascular angioplasty status with implants and grafts; Z87.891 Personal history of nicotine dependence
CPT/HCPCS: 36415; 73502; 80048; 80076; 82962; 82985; 83735; 85025; 85027; 85610; 85730; 86850; 86900; 86901; 87077; 87081; 88305; 88311; 93005; 97110; 97162; 97166; 97530; 97535; 99251; C1776; J7120; A4216; G0463; J2405; J3490

== ENCOUNTER → 2025-07-14 | Outpatient (CLI) | payer MEDICARE, SELFPAY ==
[2025-07-14 10:34] LABS: Hematocrit 36.9 % (40-54); Hemoglobin 12.8 g/dL (13.0-16.5); Immature Granulocytes Count 0.030 X10^3/uL (0.0-0.0); Mean Corp Hgb Conc 34.7 g/dL (32-36); Mean Corpuscular Volume 95.3 fL (80-94); Mean Platelet Vol. 9.2 fl (6.2-12.0); NRBC Flagged by Analyzer 0 % (0-5); Platelet Count 316 K/mm3 (150-450); RBC Distribution Width CV 13.9 % (11.6-14.6); RBC Distribution Width SD 48.6 fl (35.1-43.9); Red Blood Count 3.87 M/mm3 (4.6-6.2); White Blood Count 6.5 K/mm3 (4.4-11.0)
[2025-07-14 11:01] LABS: CRP < 3.00 mg/L (0.0-3.0); Uric Acid 5.8 mg/dL (3.5-7.2)
== END | disposition home or self-care (01) ==
LOC: MTLAB 09:44 → LAB 10:10
PROVIDERS: PCP Family Medicine; Referring Provider Orthopaedic Surgery; Visit Provider Orthopaedic Surgery
DX: M79.604 Pain in right leg (principal); M79.605 Pain in left leg
CPT/HCPCS: 36415; 83605; 84550; 85025; 85652; 86140

== ENCOUNTER → 2025-07-29 | Outpatient (CLI) | payer MEDICARE, SELFPAY ==
--- NOTE | 2025-07-29 12:51 | ART_ITS ---
Reason For Study Reason For Study: BLE Pain Procedure A bilateral lower extremity continuous wave Doppler with analog waveform analysis and ankle brachial indexes. Left Segmental Pressures Left brachial= 116mmHg. Left posterior tibial artery = 82mmHg. Left dorsalis pedis artery = 62mmHg. Left digit = 49 mmHg. The left posterior tibial artery waveforms are biphasic. The left dorsalis pedis waveforms are monophasic. Right Segmental Pressures Right brachial= 117mmHg. Right posterior tibial artery = 83mmHg. Right dorsalis pedis artery = 88mmHg. Right digit = 59 mmHg. The right posterior tibial artery waveforms are biphasic. The right dorsalis pedis waveforms are biphasic. Indices The right ankle brachial index by the posterior tibial artery is 0.71. The right ankle brachial index by the dorsalis pedis is 0.75. The right digital-brachial index is 0.59. The left ankle brachial index by the posterior tibial artery is 0.70. The left ankle brachial index by the dorsalis pedis is 0.53. The left digital-brachial index is 0.42. VL/Ankle Brachial Index Interpretation Summary Right VISHNU 0.75, moderate arterial insufficiency. Doppler/PVR waveforms of the r ight ankle moderately diminished at rest. Left VISHNU 0.7, moderate arterial insufficiency. Doppler/PVR waveforms of the lef t ankle moderately diminished at rest. Ordering Physician: Leoncio Hung Referring Physician: Rhett Royal Performed By: Dev Lofton RVT and Student
--- NOTE | 2025-07-29 12:53 | MRI_ITS ---
PROCEDURE: SPINE LUMBAR (ROUTINE) 07/29/2025 REASON FOR EXAM: RADICULAR PAIN TECHNIQUE: Procedure Code: MRISPL Modality: MR Procedure: SPINE LUMBAR (ROUTINE) COMPARISON: X-ray lumbar spine 06/09/2025. FINDINGS: Vertebrae: Preserved in height and signal. Alignment: Anterolisthesis L4 on L5 by 1 mm. Conus Medullaris: Unremarkable. L1-2: Unremarkable. L2-3: No significant foraminal or canal stenosis. L3-4: Disc bulge. Facet joint arthropathy. Ligamentum flavum hypertrophy. Moderate canal stenosis. Moderate bilateral foramina stenosis and mass-effect upon the exiting nerves. L4-5: Disc bulge. Facet joint arthropathy. Ligamentum flavum hypertrophy. Severe canal stenosis. Moderate bilateral foramina stenosis. L5-S1: Disc bulge. Facet joints arthropathy. Mild bilateral foramina stenosis. No significant canal stenosis. Sacrum: Unremarkable. MRI/Spine Lumbar (Routine) IMPRESSION: Degenerate changes, predominantly for severe canal stenosis and moderate bilate ral foramina stenosis at L4-L5. Moderate bilateral foramina stenosis at this level. Moderate canal stenosis and moderate bilateral foramina stenosis with mass-effe ct upon the exiting bilateral L3 nerves at L3-L4. Reading Location: [id number]
== END | disposition home or self-care (01) ==
LOC: MRI 12:47
PROVIDERS: PCP Family Medicine; Referring Provider Orthopaedic Surgery; Visit Provider Orthopaedic Surgery
DX: I73.9 Peripheral vascular disease, unspecified (principal); M54.10 Radiculopathy, site unspecified
CPT/HCPCS: 72148; 93922

== ENCOUNTER → 2025-09-10 | Outpatient (CLI) | payer MEDICARE, SELFPAY ==
--- NOTE | 2025-09-10 09:52 | ADU_ITS ---
Reason For Study Reason For Study: HX Lt to Rt FEM- FEM BPG / PAD Right Velocities Left Velocities Lt to Rt FEM -FEM BPG noted. Ext Iliac Artery, dist = 79.3 cm./sec. Common Femoral Artery, mid = 139.7 cm./sec. Lt Fem A Prox Anastomosis - 111.2 cm/s Profunda Prox Pre Stenosis - 74.0 cm/s Prox Graft - 100.8 cm/s Profunda Prox Stenosis - 213.0 cm/s Mid Graft - 93.0 cm/s Profunda Prox Post Stenosis - 122.5 cm/s Dist Graft - 82.7 cm/s SFA Prox Pre Stenosis - 44.9 cm/s Rt Fem A Distal Anastomosis - 121.6 cm/s. SFA Prox Stenosis - 178.6 cm/s Ext. Iliac Artery, dist = 38.6 cm./sec. SFA Prox Post Stenosis - 45.5 cm/s Common Femoral Artery, prox = 111.2 cm./sec. SFA appears to possibly occlude at mid and reconstitute at Supf Femoral Artery, prox = 87.9 cm./sec. distal. Technically difficult due to acoustic shadowing. Supf Femoral Artery, mid = 77.5 cm./sec. Supf. Femoral Artery, mid = 13.0 cm./sec. Supf Femoral Artery, dist. = 108.6 cm./sec. Supf. Femoral Artery, dist = 64.1 cm./sec. Profunda Femoral Artery = 119.0 cm./sec. Popliteal Artery, proximal, = 40.5 cm./sec. Popliteal Artery, prox. = 50.2 cm./sec. Popliteal Artery, mid = 43.4 cm./sec. Popliteal Artery, mid = 69.9 cm./sec. Popliteal Artery, distal = 54.7 cm./sec. Popliteal Artery, dist = 34.3 cm./sec. Post. Tibial Artery, prox = 29.2 cm./sec. Post. Tibial Artery, prox = 47.8 cm./sec. Post Tibial Artery, mid = 23.5 cm./sec. Post. Tibial Artery, mid = 33.0 cm./sec. Post Tibial Artery, dist. = 27.3 cm./sec. Post. Tibial Artery, dist = 33.0 cm./sec. Peroneal Artery, prox = 18.8 cm./sec. Peroneal Artery, prox = 30.6 cm./sec. Peroneal Artery, mid = 26.4 cm./sec. Peroneal Artery, mid = 42.9 cm./sec. Peroneal Artery,dist. = 16.9 cm./sec. Peroneal Artery,dist = 26.9 cm./sec. Ant.Tibial Artery, prox = 43.9 cm./sec. Ant. Tibial Artery, prox = 41.6 cm./sec. Ant Tibial Artery, mid = 26.4 cm./sec. Ant. Tibial Artery, mid = 25.7 cm./sec. Ant. Tibial Artery, distal = 26.4 cm./sec. Ant. Tibial Artery, dist = 22.0 cm./sec. Procedure The exam was diagnostic. BLE Arterial Duplex with B-Mode, Pulsed Wave and Color Doppler. Exam performed in department. VL/US Art Duplex Bilat Lower Ext Interpretation Summary Patent left to right femoral-femoral bypass with normal velocities and no steno sis. Right lower extremity arteries with no visualized stenosis. Left lower extremity with profunda femoris stenosis >50% and SFA occlusion. Ordering Physician: Isis Richards Referring Physician: Rhett Royal Performed By: [facility]
== END | disposition home or self-care (01) ==
LOC: CVS 09:50
PROVIDERS: PCP Family Medicine; Referring Provider Physician Assistant; Visit Provider Physician Assistant
DX: I73.9 Peripheral vascular disease, unspecified (principal); Z98.890 Other specified postprocedural states
CPT/HCPCS: 93925